=== PATIENT | male | born 1945 | race Caucasian/White ===

== ENCOUNTER → 2016-08-11 | Outpatient (CLI) | payer OTHER, MEDICARE ==
--- NOTE | 2016-08-11 16:55 | DX ---
Left foot 3 views Reason For Examination: Pain after dropping suitcase on left foot. Findings: The bones are intact. Joint spaces have normal thickness. No erosions and no periosteal rajan ction are found. No radiopaque foreign body. Mild bunion of first metatarsal head. Calcifications of small arteries of the foot raise a possibility of diabetes. Impression: No fracture. A Call Requested test result notification was sent via the [employer] service, 4:52:58 PM, 08/11/2016, Quin [email or web address] Message ID [id number].
== END ==
LOC: BMCIMAGING 16:33
PROVIDERS: ATTEND Internal Medicine
DX: M79.672 Pain in left foot (principal)

== ENCOUNTER 2016-10-16 17:55 | Inpatient (IN) | payer OTHER, MEDICARE ==
[2016-10-16] MEDS ORDERED: ONDANSETRON 4 MG/2 ML VIAL IVP ONE (18:23)
[2016-10-16] MEDS ORDERED: HYDROmorphONE/DILAUDID 1 MG/ML SYR IVP ONE (18:23)
[2016-10-16] MEDS ORDERED: NS 1,000 ML IV ONE (18:23)
--- NOTE | 2016-10-16 18:42 | EDPHY ---
H & P Stated Complaint: Sent by PCP. Blood in urine, severe cough, Right flank pain Time Seen by Provider: 10/16/16 18:29 HPI/ROS: CHIEF COMPLAINT: Flank pain HISTORY OF PRESENT ILLNESS: Patient is a 71-year-old man with a history of prostate cancer, bladder cancer with a neobladder by Dr. Chi and lymphoma who comes to the emergency department complaining of 10 days of flank pain, hematuria, chills and sweats. He presented to Dr. Kierra Butterfield this afternoon who referred him here. She is concerned about pyelonephritis. He does not have any history of kidney stones. He states that he had something similar happened 1 year ago on the left flank and received a colonoscopy, CT scan and MRI and ultimately no diagnosis was made but his symptoms resolved. He has not felt like eating today. He has not vomited but does feel slightly nauseous. No diarrhea. No abdominal pain. No testicular pain. He also takes Eliquis for history of atrial fibrillation. REVIEW OF SYSTEMS: Constitutional: denies: chills, fever, recent illness, recent injury EENTM: denies: blurred vision, double vision, nose congestion Respiratory: denies: cough, shortness of breath Cardiac: denies: chest pain, irregular heart rate, lightheadedness, palpitations Gastrointestinal/Abdominal: denies: abdominal pain, diarrhea, nausea, vomiting, blood streaked stools Genitourinary: See HPI Musculoskeletal: denies: joint pain, muscle pain Skin: denies: lesions, rash, jaundice, bruising Neurological: denies: headache, numbness, paresthesia, tingling, dizziness, weakness Hematologic/Lymphatic: denies: blood clots, easy bleeding, easy bruising Immunologic/allergic: denies: HIV/AIDS, transplant EXAM: GENERAL: Well-appearing, well-nourished and in no acute distress. HEAD: Atraumatic, normocephalic. EYES: Pupils equal round and reactive to light, extraocular movements intact, sclera anicteric, conjunctiva are normal. ENT: TMs normal, nares patent, oropharynx clear without exudates. Moist mucous membranes. NECK: Normal range of motion, supple without lymphadenopathy or JVD. LUNGS: Breath sounds clear to auscultation bilaterally and equal. No wheezes rales or rhonchi. HEART: Irregular rhythm without murmurs, rubs or gallops. ABDOMEN: Soft, nontender, normoactive bowel sounds. No guarding, no rebound. No masses appreciated. BACK: Right CVA tenderness, no swelling or rash, no spinal tenderness, step- offs or deformities EXTREMITIES: Normal range of motion, no pitting or edema. No clubbing or cyanosis. NEUROLOGICAL: Cranial nerves II through XII grossly intact. Normal speech, normal gait. 5/5 strength, normal movement in all extremities, normal sensation PSYCH: Normal mood, normal affect. SKIN: Warm, dry, normal turgor, no visible rashes or lesions. Source: Patient, RN/MD Exam Limitations: No limitations - Personal History Current Tetanus Diphtheria and Acellular Pertussis (TDAP): Yes Tetanus Vaccine Date: unsure - Medical/Surgical History Hx Asthma: No Hx Chronic Respiratory Disease: No Hx Diabetes: No Hx Cardiac Disease: Yes Hx Renal Disease: No Hx Cirrhosis: No Hx Alcoholism: No Hx HIV/AIDS: No Hx Splenectomy or Spleen Trauma: No Other PMH: Kidney pain to left 2016. Heart arrythmia. Prostate and bladder cancer. Lymphoma. sleep apnea. - Family History Significant Family History: No pertinent family hx - Social History Smoking Status: Never smoked Alcohol Use: Sober Drug Use: None Constitutional: Initial Vital Signs Temperature (C) 36.7 C 10/16/16 17:57 Heart Rate 93 10/16/16 17:57 Respiratory Rate 16 10/16/16 17:57 Blood Pressure 109/86 H 10/16/16 17:57 O2 Sat (%) 96 10/16/16 17:57 O2 Delivery Mode Room Air O2 (L/minute) 2 Allergies/Adverse Reactions: No Allergies [NKA] Allergy (Verified 05/16/11 17:47) Home Medications: Medication Instructions Recorded Apixaban [Eliquis] 5 mg PO BID 10/16/16 Metoprolol Tartrate [Lopressor 25 25 mg PO BID 10/16/16 mg (*)] Medical Decision Making - Diagnostics Imaging: X-ray: chest x-ray was obtained. I viewed the images myself on the PACS system. My interpretation of the images is: negative for acute disease . The radiologist interpretation is possible bronchitis. Results: CT scan of the abdomen was obtained. The results of the study are negative for pericolic fluid or stone. The study was read by Dr. Eduardo. I viewed the images myself on the PACS system. ED Course/Re-evaluation: 8:50 p.m. the patient still having pain particularly with coughing. He does have bronchitis on the x-ray. He still has kidney pain. Considering his neobladder and surgical history of will admit for antibiotics and pain control. Also we discussed Gay catheter. The patient would prefer to defer this at this time I discussed the case with Dr. Chyna Gilbert who will admit to the medical service. Differential Diagnosis: Partial list of the Differential diagnosis considered include but were not limited to; [] and although unlikely based on the history and physical exam, I also considered []. I discussed these differential diagnoses and the plan with the [patient] as well as the usual and expected course. The [patient understands] that the diagnosis is provisional and that in medicine we are not always correct and that further workup is often warranted. Usual and customary warnings were given. All of the [patient's] questions were answered. The [ patient was] instructed to return to the emergency department should the symptoms at all worsen or return, otherwise to followup with the physician as we discussed. - Data Points Laboratory Results: Laboratory Results 10/17/16 05:05 10/17/16 05:05 Microbiology Results: MICROBIOLOGY 10/16/16 19:41 Urine,Clean Catch Urine Culture - Final Three [place] Types Medications Given: Discontinued Medications Hydromorphone HCl (Dilaudid) 0.5 mg IVP EDNOW ONE Stop: 10/16/16 18:24 Last Admin: 10/16/16 18:40 Dose: 0.5 mg Sodium Chloride (Ns) 1,000 mls @ 0 mls/hr IV EDNOW ONE PRN Reason: Wide Open Stop: 10/16/16 18:24 Last Admin: 10/16/16 18:40 Dose: 1,000 mls Ceftriaxone Sodium/Dextrose (Rocephin 1 Gm (Premix)) 50 mls @ 100 mls/hr IV EDNOW ONE PRN Reason: Protocol Stop: 10/16/16 21:02 Last Admin: 10/16/16 21:27 Dose: 50 mls Ceftriaxone Sodium 1 gm/ (Dextrose) 50 mls @ 100 mls/hr IV [id number] SUSSY PRN Reason: Protocol Stop: 11/16/16 20:59 Last Admin: 10/17/16 19:51 Dose: 50 mls Sodium Chloride (Ns) 250 mls @ 250 mls/hr IV ONCE ONE Stop: 10/17/16 10:04 Last Admin: 10/17/16 10:06 Dose: 250 mls Ondansetron HCl (Zofran) 4 mg IVP EDNOW ONE Stop: 10/16/16 18:24 Last Admin: 10/16/16 18:40 Dose: 4 mg Departure - Departure Disposition: [facility] Acute Clinical Impression: Pyelonephritis Condition: Fair
[2016-10-16 18:58] LABS: % IMMATURE GRANULYOCYTES 0.4 % (0.0-1.1); ABSOLUTE IMMATURE GRANULOCYTES 0.02 10^3/uL (0.00-0.10); ADD DIFF? NO; ADD MORPH? NO; ADD SCAN? NO; ATYPICAL LYMPHOCYTE FLAG 10 (0-99); FRAGMENT RBC FLAG 0 (0-99); HEMATOCRIT 46.4 % (40.0-51.0); LEFT SHIFT FLG 0 (0-99); LIPEMIA HEMOLYSIS FLAG 90 (0-99); MEAN CELL HEMOGLOBIN 32.9 pg (27.9-34.1); MEAN CELL HEMOGLOBIN CONCENTR. 34.5 g/dL (32.4-36.7); MEAN CELL VOLUME 95.3 fL (81.5-99.8); MEAN PLATELET VOLUME 11.4 fL (8.7-11.7); PLATELET CLUMPS FLAG 0 (0-99); PLATELET COUNT 167 10^3/uL (150-400); RED BLOOD CELL COUNT 4.87 10^6/uL (4.40-6.38); RED CELL DISTRIBUTION WIDTH 13.4 % (11.5-15.2)
[2016-10-16 19:08] LABS: COLOR YELLOW; LEUKOCYTE ESTERASE,URINE NEGATIVE (NEGATIVE); NITRITE,URINE NEGATIVE (NEGATIVE)
[2016-10-16 19:17] LABS: ALANINE AMINOTRANSFERASE 46 IU/L (21-72); ALBUMIN 4.4 g/dL (3.5-5.0); ALKALINE PHOSPHATASE 91 IU/L (38-126); ANION GAP 14 mEq/L (8-16); ASPARTATE AMINOTRANSFERASE 42 IU/L (17-59); BILIRUBIN,TOTAL 1.7 mg/dL (0.1-1.4); BILIRUBIN-CONJUGATED 0.4 mg/dL (0.0-0.5); BILIRUBIN-UNCONJUGATED 1.3 mg/dL (0.0-1.1); CALCIUM 9.1 mg/dL (8.5-10.4); CARBON DIOXIDE 20 mEq/l (22-31); CHLORIDE 96 mEq/L (97-110); CREATININE 1.6 mg/dL (0.7-1.3); GLOMERULAR FILTRATION RATE 43; GLUCOSE 98 mg/dL (70-100); POTASSIUM 4.5 mEq/L (3.5-5.2); SODIUM 130 mEq/L (134-144)
[2016-10-16 19:36] LABS: INR 1.3 (0.83-1.16); PROTIME(PATIENT) 16.2 SEC (12.0-15.0)
[2016-10-16 19:37] LABS: APTT 31.9 SEC (23.0-38.0)
[2016-10-16 19:40] LABS: BACTERIA TRACE /hpf (NONE SEEN); MUCUS TRACE /lpf (NONE-1+); RBC,URINE 50-182 /hpf (0-3); WBC,URINE 50-182 /hpf (0-3)
[2016-10-16] MEDS ORDERED: ACETAMINOPHEN 325 MG TAB PO PRN (22:09)
[2016-10-16] MEDS ORDERED: ONDANSETRON 4 MG/2 ML VIAL IVP PRN (22:09)
[2016-10-16] MEDS: NS 1,000 ML IV SCH (22:29)
[2016-10-16] MEDS: HYDROmorphONE/DILAUDID 1 MG/ML SYR IVP PRN (22:30)
--- NOTE | 2016-10-16 22:46 | GHP ---
[f rep st] HISTORY AND PHYSICAL DATE OF ADMISSION: 10/16/2016 CHIEF COMPLAINT: Flank pain. HISTORY: The patient is a 71-year-old male with a history of prostate and bladder cancer for which he had a radical cystoprostatectomy with a neobladder by Dr. Chi. He has done well with that surg clarissa and normally does not have any urinary issues. He does not have an ostomy and everything is int ernal. He now presents to the hospital with severe flank pain for the last 10 days. It has been es calating. Today, it got so severe he could not even get off the couch. Four days ago he noticed he maturia. He has also had a severe cough. He has had night sweats and chills. He lives with his so n, who is at bedside. Son states the patient has been getting increasingly more confused. The arabella ent states he is confused because he has been in so much pain he has been unable to sleep for the 4 nights. PAST MEDICAL HISTORY: 1. Prostate and bladder cancer, status post radical cystoprostatectomy and neobladder. 2. Lymphoma. 3. Atrial fibrillation. 4. MRSA endocarditis in 2010. 5. Small bowel obstruction, status post lysis of adhesions. 6. Chronic kidney disease. Baseline creatinine 1.5. 7. Cholecystectomy. MEDICATIONS: Please see computer record for full detailed list. ALLERGIES: No known drug allergies. SOCIAL HISTORY: No smoking. Drinks wine daily. Lives with his son, who is an immigration attorney. REVIEW OF SYSTEMS: Complete review of systems obtained. Review of systems is negative regarding co nstitutional, HEENT, GI, pulmonary, cardiovascular, , hematology, skin, musculoskeletal, endocrine , and psychiatric except for positives and negatives as in HPI. FAMILY HISTORY: Reviewed and noncontributory to the presenting complaint. PHYSICAL EXAMINATION: GENERAL: Well-developed, well-nourished male, in no acute distress. VITAL S IGNS: Temperature is 36.7, pulse 91, blood pressure 102/78, sating 96% on room air. EYE: Normal c onjunctivae. Pupils are equal and react to light. ENT: Normal ears, nose. Hearing intact. Stephanie l lips and teeth. Oropharynx moist. NECK: Trachea midline. No thyromegaly. CHEST: Normal inspi ratory effort. LUNGS: Clear to auscultation bilaterally. CARDIOVASCULAR: Regular rate and rhythm . No murmur. No lower extremity edema. ABDOMEN: Soft, nontender. No hepatosplenomegaly. He arauz s have quite exquisite right costovertebral angle tenderness to palpation. SKIN: Warm, dry, and in tact without rash. MUSCULOSKELETAL: No cyanosis or clubbing. Strength 5/5 upper and lower extremi ties. NEUROLOGIC: Cranial nerves intact. Normal sensation light touch. PSYCH: Alert and oriente d x3. Normal affect. Normal judgment and insight. Normal memory. LABS: White count 5.08, hematocrit 46.4, platelets 167. Sodium 130, potassium 4.5, chloride 96, bi carb 20, BUN 30, creatinine 1.6, glucose 98, total bili 1.6. INR is 1.3. Lactate is 1.4. Chest x- ray is negative. Urinalysis shows 50-[address] scan of the abdomen and pelvis is n egative. This case was discussed with Dr. Youngblood. He believes this patient to have a pyelonephritis and was given a dose of IV ceftriaxone. ASSESSMENT/PLAN: 1. Pyelonephritis. Will continue IV ceftriaxone and await urine culture. 2. Prostate and bladder cancer, status post neobladder. He does not have an ostectomy so, therefor e, I would think our culture data would be more reliable. 3. Atrial fibrillation. Home meds still need to be reconciled. 4. Chronic kidney disease. He is near his baseline, but I suspect he is dehydrated. Will give IV fluid overnight and recheck. CODE STATUS: Full. ADMISSION STATUS: 1. Will admit to observation as he may improve rapidly depending on clinical course. 2. DVT prophylaxis. He is high risk. I will place him on subcu Lovenox. /[id number]/MODL
[2016-10-17] MEDS: oxyCODONE IR 5 MG TAB PO PRN ×2 (00:34→22:11)
[2016-10-17] MEDS: APIXABAN 5 MG TAB PO SCH ×3 (01:10→19:44)
[2016-10-17] MEDS: HYDROmorphONE/DILAUDID 1 MG/ML SYR IVP PRN ×2 (03:02→10:07)
[2016-10-17 05:47] LABS: % IMMATURE GRANULYOCYTES 0.4 % (0.0-1.1); ABSOLUTE IMMATURE GRANULOCYTES 0.02 10^3/uL (0.00-0.10); ADD DIFF? NO; ADD MORPH? NO; ADD SCAN? NO; ATYPICAL LYMPHOCYTE FLAG 40 (0-99); FRAGMENT RBC FLAG 0 (0-99); HEMATOCRIT 40.4 % (40.0-51.0); HEMOGLOBIN 13.8 g/dL (13.7-17.5); LEFT SHIFT FLG 0 (0-99); LIPEMIA HEMOLYSIS FLAG 90 (0-99); MEAN CELL HEMOGLOBIN 33.2 pg (27.9-34.1); MEAN CELL HEMOGLOBIN CONCENTR. 34.2 g/dL (32.4-36.7); MEAN CELL VOLUME 97.1 fL (81.5-99.8); MEAN PLATELET VOLUME 11.4 fL (8.7-11.7); PLATELET CLUMPS FLAG 0 (0-99); PLATELET COUNT 125 10^3/uL (150-400); RED BLOOD CELL COUNT 4.16 10^6/uL (4.40-6.38); RED CELL DISTRIBUTION WIDTH 13.5 % (11.5-15.2)
[2016-10-17 06:20] LABS: ANION GAP 8 mEq/L (8-16); CALCIUM 7.8 mg/dL (8.5-10.4); CARBON DIOXIDE 20 mEq/l (22-31); CHLORIDE 103 mEq/L (97-110); CREATININE 1.3 mg/dL (0.7-1.3); GLOMERULAR FILTRATION RATE 55; GLUCOSE 80 mg/dL (70-100); POTASSIUM 4.2 mEq/L (3.5-5.2); SODIUM 131 mEq/L (134-144)
[2016-10-17] MEDS: NS 1,000 ML IV SCH ×2 (07:36→16:22)
[2016-10-17] MEDS ORDERED: ENOXAPARIN 40 MG/0.4 ML SYR SC SCH (09:00)
--- NOTE | 2016-10-17 09:03 | HOSPPROG ---
Hospitalist Progress Note Assessment/Plan: Patient is a 71-year-old male with a history of prostate and bladder cancer for which he had a radical cystoprostatectomy with a neobladder by Dr. Chi. He presented to the emergency room with flank pain. 4 days ago he noticed he has some hematuria and cough. A CT scan of the abdomen and pelvis is negative. Today is my 1st encounter with the patient. Chart reviewed. * Acute pyelonephritis - awaiting urine culture - ceftriaxone 10/16 - has signicant flank pain on right side *right L3 and L4 transverse process fx/L4 compression fx - patient says this is old/ but ? if this may attributing to pain above * chronic kidney disease - improved with hydration * bronchitis/likely viral -has had multiple bouts of coughing * hyponatremia - better today * hypotension - will continue fluids - improved with bolus given * atrial fibrillation -on Eliquis * prostate and bladder cancer - followed by Dr. Chi * hx of lymphoma Plan: patient will require another midnight stay for treatment of low bp, pyelo / he will require IP status for further treatment Subjective: Jun said pain is severe on right flank area/ when he coughs the pain increases. Objective: Vital Signs Temp Pulse Resp BP Pulse Ox 37.1 C 88 18 85/58 L 95 10/17/16 08:00 10/17/16 08:00 10/17/16 08:00 10/17/16 08:00 10/17/16 08:00 Laboratory Results 10/17/16 05:05 10/17/16 05:05 10/16/16 10/17/16 10/18/16 05:59 05:59 05:59 Intake Total 1700 Output Total 250 150 Balance 1450 -150 PT 16.2 SEC (12.0-15.0) H 10/16/16 18:40 INR 1.30 (0.83-1.16) H 10/16/16 18:40 - Physical Exam Constitutional: uncomfortable Eyes: PERRL Ears, Nose, Mouth, Throat: hearing normal Cardiovascular: regular rate and rhythym, no murmur, rub, or gallop Respiratory: no respiratory distress, rhonchi (few loose rhonchii at right base) Gastrointestinal: normoactive bowel sounds Skin: warm, normal color Musculoskeletal: muscular tenderness (right back area) Neurologic: AAOx3 Psychiatric: interacting appropriately ICD10 Worksheet Patient Problems: Problems Problem Status Onset Pyelonephritis Acute Afib - Atrial fibrillation Active MRSA - Methicillin resistant Staphylococcus aureus infection Active Small bowel obstruction Active bladder carcinoma Active prostate cancer Active
[2016-10-17] MEDS ORDERED: NS 250 ML IV ONE (09:05)
[2016-10-17] MEDS: METOPROLOL TARTRATE 25 MG TAB PO SCH ×2 (09:19→19:43)
[2016-10-17] MEDS: CEPACOL LOZENGE PO PRN ×3 (14:09→19:22)
[2016-10-17] MEDS: LIDOCAINE 5% 1 EA PATCH TD SCH ×2 (14:09→14:17)
[2016-10-17] MEDS: guaiFENesin/CODEINE PHOS 10 ML UDCUP PO PRN ×2 (14:09→19:44)
[2016-10-17] MEDS ORDERED: cefTRIAXone 1 GM in D5W 50 ML IV SCH (21:00)
[2016-10-17] MEDS: PATCH REMOVAL 1 EA PATCH TD SCH (22:00)
[2016-10-18] MEDS: NS 1,000 ML IV SCH ×2 (03:08→13:44)
[2016-10-18 06:15] LABS: ANION GAP 9 mEq/L (8-16); CALCIUM 7.6 mg/dL (8.5-10.4); CARBON DIOXIDE 21 mEq/l (22-31); CHLORIDE 104 mEq/L (97-110); CREATININE 1.2 mg/dL (0.7-1.3); GLOMERULAR FILTRATION RATE 60; GLUCOSE 85 mg/dL (70-100); POTASSIUM 4.1 mEq/L (3.5-5.2); SODIUM 134 mEq/L (134-144)
[2016-10-18] MEDS: guaiFENesin/CODEINE PHOS 10 ML UDCUP PO PRN ×2 (07:02→21:03)
[2016-10-18] MEDS: CEPACOL LOZENGE PO PRN ×2 (07:02→16:31)
[2016-10-18] MEDS: APIXABAN 5 MG TAB PO SCH ×2 (08:17→20:58)
[2016-10-18] MEDS: LIDOCAINE 5% 1 EA PATCH TD SCH (08:17)
--- NOTE | 2016-10-18 09:47 | HOSPPROG ---
Hospitalist Progress Note Assessment/Plan: Patient is a 71-year-old male with a history of prostate and bladder cancer for which he had a radical cystoprostatectomy with a neobladder by Dr. Chi. He presented to the emergency room with flank pain. 4 days ago he noticed he has some hematuria and cough. A CT scan of the abdomen and pelvis is negative. * Acute pyelonephritis - urine culture shows two colony counts - ceftriaxone 10/16 - flank pain on right side has improved with the use of abx *right L3 and L4 transverse process fx/ oldL4 compression fx - ? if this is attributing to his pain - have asked neurosurgery to see/ asked them to see patient prior to ordering any test * chronic kidney disease - improved with hydration * bronchitis/likely viral -has had multiple bouts of coughing -Robitussin w codeine has been ordered, Cepacol, will add Tessalon perls * hyponatremia due to hypovolemia - resolved * hypotension - will continue fluids -improved with bolus given -parameters placed on as to when to hold beta yesi * atrial fibrillation -on Eliquis * prostate and bladder cancer - followed by Dr. Chi/ spoke with BRODY Ontiveros with Dr Chi/ he is in [place] today, but back in office tomorrow - will ask and see if he can see the patient on / left * hx of lymphoma Plan: call into urology, neurosurgery to see later, asked the patient training representative to see the patient / he has multiple concerns. >30 minutes seeing patient and organizing plan of care with neurosurgery and urology. Subjective: Jun says his right sided flank pain is better. Wants to be assured he won't get another urinary tract infection/had one last year approximately at the same time. Objective: Vital Signs Temp Pulse Resp BP Pulse Ox 37.1 C 97 18 107/68 93 10/18/16 08:00 10/18/16 08:00 10/18/16 08:00 10/18/16 08:00 10/18/16 08:00 Laboratory Results 10/18/16 05:25 10/17/16 10/18/16 10/19/16 05:59 05:59 05:59 Intake Total 3323 Output Total 475 Balance 2848 PT 16.2 SEC (12.0-15.0) H 10/16/16 18:40 INR 1.30 (0.83-1.16) H 10/16/16 18:40 - Physical Exam Constitutional: uncomfortable Eyes: PERRL Ears, Nose, Mouth, Throat: hearing normal Cardiovascular: regular rate and rhythym Respiratory: no respiratory distress Gastrointestinal: soft, non-tender abdomen Skin: warm, normal color Musculoskeletal: muscular tenderness (right back area) Neurologic: AAOx3 Psychiatric: not encephalopathic, thought process linear ICD10 Worksheet Patient Problems: Problems Problem Status Onset Pyelonephritis Acute Afib - Atrial fibrillation Active MRSA - Methicillin resistant Staphylococcus aureus infection Active Small bowel obstruction Active bladder carcinoma Active prostate cancer Active
[2016-10-18] MEDS: METOPROLOL TARTRATE 25 MG TAB PO SCH (10:24)
[2016-10-18] MEDS: BENZONATATE 100 MG CAP PO PRN ×2 (10:27→21:03)
--- NOTE | 2016-10-18 12:01 | GCON ---
[f rep st] CONSULTATION CONSULTATION/HISTORY AND PHYSICAL CHIEF COMPLAINT: Low back pain, right-sided flank pain with recent fall. HISTORY OF PRESENT ILLNESS: The patient is a 71-year-old male who has a history of prostate and bladder cancer for which he had radical cystoprostatectomy and a neobladder implant by Dr. Chi. He had done well with the surgery and normally does not have any urinary issues. He does have an ostomy and everything is internal. He presented to the hospital on 2016 with severe right-sided flank pain for the past 10 days. He states it has been escalating. On the day of admission, he stated per the admitting physician 's note, that it got so severe he could not get off the couch. Four days ago he noted some hematuria. He also complained of a severe cough on admission. He states mainly pain in the right side and his flank area. No pain in his buttocks bilaterally. No pain in his legs. He has no numbness. No tingling. No weakness in his legs. He is ambulating well. No change in bowel or bladder habits. No numbness in the groin. PAST MEDICAL HISTORY: Significant for the followin. Prostate cancer. 2. Bladder cancer. 3. Lymphoma. 4. Atrial fibrillation. 5. MRSA endocarditis in 2010. 6. Small-bowel obstruction. 7. Chronic kidney disease. 8. Cholecystectomy history. PAST SURGICAL HISTORY: 1. Prostate surgery with a radical cystoprostatectomy. 2. Implantation of neobladder. 3. Cholecystectomy. 4. Abdominal surgery for lysis of adhesions. MEDICATIONS: Please see computer record for full detailed list. ALLERGIES: No known drug allergies. SOCIAL HISTORY: Patient is not . He has 3 children. He does not smoke. He drinks about 3 alcoholic beverages per week. He does not use any illicit drugs. He lives with his son who is an deputy prosecuting attorney. FAMILY HISTORY: Significant for a brother with hypertension and obesity of father who from lymphoma at age 83. IMMUNIZATIONS: Reported up to date. TRAVEL: No recent travel. REVIEW OF SYSTEMS: Complete review of systems noted in conjunction with above. Noted the following: No headache. No diplopia. No blurred vision. No loss of visual field. No hearing loss, tinnitus or vertigo. PULMONARY: No cough, sputum production, hemoptysis, dyspnea or pleuritic chest pain. CARDIAC: No chest pain or pressure. No palpitations. GI: No weight loss or gain. No nausea, vomiting, or diarrhea. : Noticed some dysuria and some hematuria. No urgency or frequency. No incontinence. PSYCHIATRIC: No suicidality or homicidality. PHYSICAL EXAMINATION: VITAL SIGNS: Most recent blood pressure 107/68 with a MAP of 81, 97 heart rate, 18 respirations, 93% on room air, temperature 37.1. HEENT: Normocephalic, atraumatic. Pupils are equal, round, and reactive to light. EOMIs intact. Full visual jacobson by confrontation. Ears are patent. Nose is patent. NECK: Soft, supple. No midline tenderness. Full range of motion in flexion, extension, lateral bending, and rotation. RESPIRATORY/ CARDIAC: Deferred. ABDOMEN: Soft, nontender. No peritoneal signs. /RECTAL : Deferred. NEURO: Patient is awake, alert, and oriented to name, place, location, date, time, and situation. Memory is intact to immediate, past, and current events. Speech: No aphasia, dysarthria, dysphonia. Cranial nerves 2- 12 are grossly intact. Motor: Patient has 5/5 strength in all muscle groups of bilateral upper and lower extremities. Sensation is grossly intact to light touch throughout all dermatome distributions. Negative straight leg raise. Negative KIMBERLY test. Reflexes of biceps, triceps, brachioradialis, knee jerk, and ankle jerk are 2+ out of 4. Toes are downgoing bilaterally. MEDICAL DECISION MAKING/DIAGNOSTIC STUDIES: Laboratory tests obtained on 2016: White count 4.67, H and H of 13.8 and 40.4, with a platelet count of 125. Coags on 10/16/2016: A PT of 16.2, and INR of 1.30, and a PTT of 31.9. Chemistry on 10/18/2016: Sodium 134, potassium 4.1, chloride 104, CO2 21, BUN 18, creatinine 1.2 and a glucose of 85. Imaging: CT scan of the abdomen and pelvis obtained on 10/16/2016 shows a nondisplaced right L3 and L4 transverse process fractures. Some baseline degenerative changes. Pending MRI of the lumbar spine with and without contrast. IMPRESSION: 1. Recent fall. 2. History of bladder and prostate cancer in remission. Patient's oncologist, Dr. Bartholomew. 3. Right L3 and L4 transverse process fracture. PLAN/DISCUSSION: The patient is a 71-year-old male who is in remission under the care of Dr. Bartholomew for his bladder and prostate cancer history. He has had approximately 10 days of some hematuria per his account as well as some right- sided flank pain. A CT scan shows right-sided L3 and L4 transverse process fractures which do not require any surgical intervention or bracing from our standpoint. Due to his continued back pain. We will get an MRI of his lumbar spine with without contrast. We will follow up with this hopefully later today once this is completed. Patient is agreeing with this plan. All questions and concerns were answered. He understands and agrees and will follow up with him once the imaging tests were obtained. /[id number]/MODL MTDD
[2016-10-18] MEDS ORDERED: GADOBUTROL 10 ML VIAL IVP ONE (15:13)
[2016-10-18] MEDS: PATCH REMOVAL 1 EA PATCH TD SCH (21:30)
[2016-10-19] MEDS: guaiFENesin/CODEINE PHOS 10 ML UDCUP PO PRN (03:15)
[2016-10-19 05:18] VITALS: BP 96/64
[2016-10-19 05:47] LABS: % IMMATURE GRANULYOCYTES 0.4 % (0.0-1.1); ABSOLUTE IMMATURE GRANULOCYTES 0.01 10^3/uL (0.00-0.10); ADD DIFF? NO; ADD MORPH? NO; ADD SCAN? NO; ATYPICAL LYMPHOCYTE FLAG 90 (0-99); FRAGMENT RBC FLAG 0 (0-99); HEMATOCRIT 39.3 % (40.0-51.0); HEMOGLOBIN 13.7 g/dL (13.7-17.5); LEFT SHIFT FLG 0 (0-99); LIPEMIA HEMOLYSIS FLAG 90 (0-99); MEAN CELL HEMOGLOBIN 33.4 pg (27.9-34.1); MEAN CELL HEMOGLOBIN CONCENTR. 34.9 g/dL (32.4-36.7); MEAN CELL VOLUME 95.9 fL (81.5-99.8); MEAN PLATELET VOLUME 11.2 fL (8.7-11.7); PLATELET CLUMPS FLAG 0 (0-99); PLATELET COUNT 138 10^3/uL (150-400); RED CELL DISTRIBUTION WIDTH 13.2 % (11.5-15.2)
[2016-10-19 05:50] LABS: ALANINE AMINOTRANSFERASE 38 IU/L (21-72); ALBUMIN 2.9 g/dL (3.5-5.0); ALKALINE PHOSPHATASE 62 IU/L (38-126); ANION GAP 7 mEq/L (8-16); ASPARTATE AMINOTRANSFERASE 38 IU/L (17-59); BILIRUBIN,TOTAL 0.8 mg/dL (0.1-1.4); CALCIUM 8.1 mg/dL (8.5-10.4); CARBON DIOXIDE 23 mEq/l (22-31); CHLORIDE 104 mEq/L (97-110); CREATININE 1.1 mg/dL (0.7-1.3); GLOMERULAR FILTRATION RATE > 60; GLUCOSE 85 mg/dL (70-100); POTASSIUM 4.2 mEq/L (3.5-5.2); SODIUM 134 mEq/L (134-144); TOTAL PROTEIN 5.3 g/dL (6.3-8.2)
[2016-10-19 07:59] VITALS: PULSE 95; RESP 18; TEMP 98; O2SAT 90
--- NOTE | 2016-10-19 09:06 | NEUSURGPN ---
Assessment/Plan: Assessment: 71 yo male that was admitted to with right sided pain, we were consulted for right L3 and right L4 TP fractures Plan: -TP fx on right at L3 and L4: MRI done to confirm the diagnosis-no severe stenosis -no surgery recommended -treat with pain medications and muscle relaxants prn -PT/OT -Pt see by Dr Miranda -warning signs given -call with any questions or concerns -NS to sign off and pt can see his PCP prn for his back Subjective: Awake and alert. NAD. Eating/drinking and voiding. No f/c/n/v/d. No caraballo/neck/ chest/abd or gu complaints. Objective: AAO x 3, PERRLA/EOMI no droop CN 2-12 grossly intact +lt touch 5/5 BUE/BLE = Neuro Check Frequency: per routine Urinary Catheter in Place: No - Physician Discussed Patient with : Ruben Patient Seen by : Ruben Neurosurgery Physical Exam - Vitals, I&O, Labs I and O 10/18/16 10/19/16 10/20/16 05:59 05:59 05:59 Intake Total 3323 1018 Output Total 475 150 Balance 2848 868 Intake: Oral (ml) 200 IV Infused (ml) 3123 1018 Ns 1,000 ml @ 100 mls/hr 3123 1018 IV CONT SUSSY Rx#: [id number] Output: Urine (ml) 475 150 Urinal 475 150 Other: Intake Quantity Yes Yes Sufficient Output Comment Urinal on past two voids, at end of urination, small amount of blood has passed. Number of Voids Urinal 2 Vital Signs Temp Pulse Resp BP Pulse Ox 36.6 C 95 18 96/64 L 90 L 10/19/16 07:58 10/19/16 07:58 10/19/16 07:58 10/19/16 07:58 10/19/16 07:58 Laboratory Results 10/19/16 04:54 10/19/16 04:54 ICD10 Worksheet Patient Problems: Problems Problem Status Onset Pyelonephritis Acute Afib - Atrial fibrillation Active MRSA - Methicillin resistant Staphylococcus aureus infection Active Small bowel obstruction Active bladder carcinoma Active prostate cancer Active
[2016-10-19] MEDS: APIXABAN 5 MG TAB PO SCH (09:14)
[2016-10-19] MEDS: LIDOCAINE 5% 1 EA PATCH TD SCH (09:20)
[2016-10-19] MEDS: METOPROLOL TARTRATE 25 MG TAB PO SCH (11:02)
--- NOTE | 2016-10-19 17:29 | GDS ---
[f rep st] DISCHARGE SUMMARY DISCHARGE DIAGNOSES: Include: 1. Acute urinary tract infection/pyelonephritis. 2. L3-L4 nondisplaced compression fracture. 3. Chronic kidney disease. 4. Chronic cough secondary to suspected viral bronchitis. 5. Hyponatremia secondary to hypovolemia, resolved. 6. Atrial fibrillation. 7. Prostate cancer, status post surgical treatment. HISTORY OF PRESENT ILLNESS: This is a 71-year-old male who presented on 10/16/2016 with complaints of flank pain and hematuria. For details of the patient's initial presentation, please see the hist ory and physical dated 10/16/2016. HOSPITAL COURSE: 1. Acute pyelonephritis. Patient presented with flank pain, hematuria, had abnormal urinalysis and was initiated on empiric antibiotics. He had resolution of his flank pain after 72 hours of antibi otic treatment. Cultures did not grow a specific pathogen. We will, however, complete a 7-day cour se. It is recommended the patient follow with his urologist in the outpatient setting, Dr. Chi, a fter completion of his antibiotic therapy for re-analysis of his urine and followup of his post disp osition course. 2. Cough. This was one of the patient's presenting complaints. Chest x-ray obtained on 10/16 show ed findings consistent with only bronchitis. He has had symptoms for quite a long time, highly susp icious for an initial viral upper respiratory infection with now chronic cough. I am hesitant to in itiate prednisone therapy at this time as the patient is being actively treated for pyelonephritis. We have initiated guaifenesin with codeine for sleep as well as a trial of albuterol. We have inst ructed him to follow with Dr. Kierra Butterfield in the next week to evaluate his response to albuterol. Of note, the patient has been receiving antibiotics appropriately for bacterial pathogens of pneumonia as well. He shall finish the course by the time he is seen by Dr. Butterfield. 3. Atrial fibrillation. Patient did have low blood pressures but good heart rate control on his ho me dosing metoprolol. We have recommended that he decrease his dose by half and be evaluated again by either his outpatient naval designer or Dr. Butterfield. It would be my goal to have systolic blood pres sures above 100 systolic on treatment. 4. L3-L4 nondisplaced fracture. The patient was seen by Neurosurgery, MRI imaging obtained. It wa s not felt patient requires surgical intervention at this time. We discussed the use of either pain medications or muscle relaxants. The patient is not interested in using either of these at disposi tion. Again, he will follow in the outpatient setting with Dr. Butterfield and/or Dr. Miranda if his sympt oms progress. DISCHARGE MEDICATIONS: Please reference medication reconciliation printed on 10/19/2016. FOLLOWUP APPOINTMENTS: Include with Dr. Butterfield as well as Dr. Chi in the next 7-10 days. PENDING STUDIES: At the time of this dictation are none. I spent greater than 30 minutes in the planning and coordination of this discharge. /[id number]/MODL
== END 2016-10-19 11:40 | disposition home or self-care (01) | DRG 690 ==
LOC: F3E 22:14 → OBSVTOIN 10-17 12:45
PROVIDERS: ADMIT Internal Medicine; ATTEND Hospitalist
DX: N10 Acute pyelonephritis (principal); S32.039A Unspecified fracture of third lumbar vertebra, initial encounter for closed fracture; S32.049A Unspecified fracture of fourth lumbar vertebra, initial encounter for closed fracture; J40 Bronchitis, not specified as acute or chronic; E87.1 Hypo-osmolality and hyponatremia; E86.1 Hypovolemia; I48.91 Unspecified atrial fibrillation; Z85.46 Personal history of malignant neoplasm of prostate; N18.9 Chronic kidney disease, unspecified; Z96.0 Presence of urogenital implants; Z85.72 Personal history of non-Hodgkin lymphomas; W19.XXXA Unspecified fall, initial encounter; Y92.9 Unspecified place or not applicable
CPT/HCPCS: 96365; 97161-GP; 97165-GO; 97530-GP; A9585; G0378; G8978-GP-CI; G8979-GP-CI; G8980-GP-CI; G8987-GO-CI; G8988-GO-CH; G8989-GO-CH; J0696; J1170; J2405

== ENCOUNTER 2016-10-21 20:45 | Observation (INO) | payer OTHER, MEDICARE ==
--- NOTE | 2016-10-21 22:08 | CPEKG ---
Heart Rate: 87 RR Interval: 690 QRSD Interval: 82 QT Interval: 392 QTC Interval: 472 QRS [place]: 70 T Wave [place]: 45 EKG Severity - ABNORMAL ECG - EKG Impression: ATRIAL FIBRILLATION, V-RATE 61-115 Electronically Signed By: Liza Wilder 21-Oct-2016 23:10:09
--- NOTE | 2016-10-21 22:25 | EDPHY ---
H & P Stated Complaint: Not sleeping since released from Hosp , anxiety, Time Seen by Provider: 10/21/16 22:04 HPI/ROS: HPI The patient presents with insomnia which has been present for the last 3 days after he was discharged from the hospital on October 19 after a 3 day admission for pyelonephritis with hematuria and bronchitis. He says his 1st night home he slept 4 hours, then 1 hour 2 nights ago, then last night he did not sleep at all. He has not been sleeping during the day either. He says when he goes to lay down he is able to sleep for minutes, however then a wakes gasping for air. He feels somewhat congested, though denies any cough. This shortness of breath last for minutes, then resolves on its own. He has tried changes in position without any improvement in symptoms. He does not have any lower extremity edema, he is able to lie flat, he does not have any chest pain. Today he went for 1 mi walk without any dyspnea on exertion. He has not had any fever. He was discharged from the hospital on albuterol, guaifenesin, levofloxacin. He does have a diagnosis of obstructive sleep apnea, last sleep study was in July of 2016, he is not using CPAP currently.. REVIEW OF SYSTEMS Constitutional: No fever, no chills. Eyes: No discharge. ENT: No sore throat. Cardiovascular: No chest pain, no palpitations. Respiratory: No cough, no shortness of breath. Gastrointestinal: No abdominal pain, no vomiting. Genitourinary: No hematuria. Musculoskeletal: No back pain. Skin: No rashes. Neurological: No headache. PMHx: Atrial fibrillation on Eliquis, recent diagnosis of bronchitis and pyelonephritis with hospital admission, history of obstructive sleep apnea Soc Hx: Housed PHYSICAL General Appearance: Alert, no distress Eyes: Pupils equal and round no pallor or injection ENT, Mouth: Mucous membranes moist Respiratory: There are no retractions, lungs are clear to auscultation Cardiovascular: Regular rate and rhythm Gastrointestinal: Abdomen is soft and non-tender, no masses, bowel sounds normal Neurological: A&O, moves all extremities Skin: Warm and dry, no rashes Musculoskeletal: Neck is supple non tender Extremities: symmetrical, full range of motion Psychiatric: Patient is oriented X 3, there is no agitation Source: Patient Exam Limitations: No limitations - Personal History Current Tetanus/Diphtheria Vaccine: Unsure Current Tetanus Diphtheria and Acellular Pertussis (TDAP): Unsure Tetanus Vaccine Date: unsure - Medical/Surgical History Hx Asthma: No Hx Chronic Respiratory Disease: No Hx Diabetes: No Hx Cardiac Disease: Yes Hx Renal Disease: Yes Hx Cirrhosis: No Hx Alcoholism: No Hx HIV/AIDS: No Hx Splenectomy or Spleen Trauma: No Other PMH: Kidney infections. Afib. Prostate and bladder cancer. Lymphoma. sleep apnea, anxiety. - Social History Smoking Status: Never smoked Constitutional: Initial Vital Signs Temperature (C) 36.7 C 10/21/16 21:02 Heart Rate 96 10/21/16 21:02 Respiratory Rate 18 10/21/16 21:02 Blood Pressure 133/90 H 10/21/16 21:02 O2 Sat (%) 95 10/21/16 21:02 O2 Delivery Mode Room Air Allergies/Adverse Reactions: No Allergies [NKA] Allergy (Verified 05/16/11 17:47) Home Medications: Medication Instructions Recorded Apixaban [Eliquis] 5 mg PO BID 10/16/16 Albuterol [Proventil] 2 puffs IH BID #0 aerosol 10/19/16 Guaifenesin/Codeine Phosphate 5 ml PO HS #1 btl 10/19/16 [Codeine-Guaifen 10-100 mg/5 ml] Metoprolol Tartrate [Lopressor 25 12.5 mg PO BID #0 tab 10/19/16 mg (*)] levOFLOXACIN [Levofloxacin] 750 mg PO DAILY #5 tablet 10/19/16 Medical Decision Making - Diagnostics EKG Interpretation: EKG: Complete interpretation has been separately recorded in the [facility] archive. Summary impression: Atrial fibrillation with rate of 60-90 Imaging: Chest x-ray two views shows bronchitis, similar to prior chest x-ray, interpreted by Radiology, I have reviewed the images independently. ED Course/Re-evaluation: The patient was monitored in the emergency room. He did not have any episodes of shortness of breath. Labs returned and showed that he had an elevated BNP. 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 I am concerned he may have new onset heart failure related to his atrial fibrillation. He was given a dose of Lasix. The case was discussed with Dr. Sanchez of Internal Medicine. We plan to admit the patient for observation. Differential Diagnosis: This is a 71-year-old male with history of atrial fibrillation, obstructive sleep apnea, recent admission for pyelonephritis and bronchitis who presents with insomnia which she believes is caused by shortness of breath which is awaking him from sleep frequently. This insomnia is getting progressively worse. It was not present prior to his admission to the hospital. Differential diagnosis includes obstructive sleep apnea which is progressive, new onset CHF given his underlying atrial fibrillation, anxiety since his discharge, medication side effect. - Data Points Laboratory Results: Laboratory Results 10/21/16 20:32 10/21/16 20:32 10/22/16 10/21/16 10/21/16 00:00 20:32 20:32 WBC 5.82 10^3/uL 10^3/uL (3.80-9.50) RBC 4.54 10^6/uL 10^6/uL (4.40-6.38) Hgb 14.9 g/dL g/dL (13.7-17.5) Hct 43.3 % % (40.0-51.0) MCV 95.4 fL fL (81.5-99.8) MCH 32.8 pg pg (27.9-34.1) MCHC 34.4 g/dL g/dL (32.4-36.7) RDW 13.2 % % (11.5-15.2) Plt Count 228 10^3/uL D 10^3/uL (150-400) MPV 10.5 fL fL (8.7-11.7) Neut % (Auto) 69.8 % % (39.3-74.2) Lymph % (Auto) 18.2 % % (15.0-45.0) Bibb % (Auto) 10.5 % % (4.5-13.0) Eos % (Auto) 0.9 % % (0.6-7.6) Baso % (Auto) 0.3 % % (0.3-1.7) Nucleat RBC Rel Count 0.0 % % (0.0-0.2) Absolute Neuts (auto) 4.06 10^3/uL 10^3/uL (1.70-6.50) Absolute Lymphs (auto) 1.06 10^3/uL 10^3/uL (1.00-3.00) Absolute Monos (auto) 0.61 10^3/uL 10^3/uL (0.30-0.80) Absolute Eos (auto) 0.05 10^3/uL 10^3/uL (0.03-0.40) Absolute Basos (auto) 0.02 10^3/uL 10^3/uL (0.02-0.10) Absolute Nucleated RBC 0.00 10^3/uL 10^3/uL (0-0.01) Immature Gran % 0.3 % % (0.0-1.1) Immature Gran # 0.02 10^3/uL 10^3/uL (0.00-0.10) Sodium 140 mEq/L mEq/L (134-144) Potassium 4.3 mEq/L mEq/L (3.5-5.2) Chloride 108 mEq/L mEq/L (97-110) Carbon Dioxide 19 mEq/l L mEq/l (22-31) Anion Gap 13 mEq/L mEq/L (8-16) BUN 36 mg/dL H mg/dL (7-23) Creatinine 1.4 mg/dL H mg/dL (0.7-1.3) Estimated GFR 50 Glucose 97 mg/dL mg/dL (70-100) Calcium 9.1 mg/dL mg/dL (8.5-10.4) Total Bilirubin 1.8 mg/dL H D mg/dL (0.1-1.4) AST 56 IU/L IU/L (17-59) ALT 47 IU/L IU/L (21-72) Alkaline Phosphatase 76 IU/L IU/L (38-126) Troponin I NT-Pro-B Natriuret Pep 2750 pg/mL H pg/mL (0-125) Total Protein 6.6 g/dL D g/dL (6.3-8.2) Albumin 3.9 g/dL g/dL (3.5-5.0) TSH 3.360 uIU/mL uIU/mL (0.465-4.680) 10/21/16 20:30 WBC RBC Hgb Hct MCV MCH MCHC RDW Plt Count MPV Neut % (Auto) Lymph % (Auto) Bibb % (Auto) Eos % (Auto) Baso % (Auto) Nucleat RBC Rel Count Absolute Neuts (auto) Absolute Lymphs (auto) Absolute Monos (auto) Absolute Eos (auto) Absolute Basos (auto) Absolute Nucleated RBC Immature Gran % Immature Gran # Sodium Potassium Chloride Carbon Dioxide Anion Gap BUN Creatinine Estimated GFR Glucose Calcium Total Bilirubin AST ALT Alkaline Phosphatase Troponin I < 0.012 ng/mL ng/mL (0-0.034) NT-Pro-B Natriuret Pep Total Protein Albumin TSH Medications Given: Discontinued Medications Furosemide (Lasix Injection) 20 mg IVP EDNOW ONE Stop: 10/21/16 23:47 Last Admin: 10/22/16 00:10 Dose: 20 mg Departure - Departure Disposition: [facility] Inpatient Acute Clinical Impression: Afib - Atrial fibrillation, Paroxysmal nocturnal dyspnea Condition: Fair
[2016-10-21 22:47] LABS: % IMMATURE GRANULYOCYTES 0.3 % (0.0-1.1); ABSOLUTE IMMATURE GRANULOCYTES 0.02 10^3/uL (0.00-0.10); ADD DIFF? NO; ADD MORPH? NO; ADD SCAN? NO; ATYPICAL LYMPHOCYTE FLAG 40 (0-99); FRAGMENT RBC FLAG 0 (0-99); HEMATOCRIT 43.3 % (40.0-51.0); HEMOGLOBIN 14.9 g/dL (13.7-17.5); LEFT SHIFT FLG 0 (0-99); LIPEMIA HEMOLYSIS FLAG 90 (0-99); MEAN CELL HEMOGLOBIN 32.8 pg (27.9-34.1); MEAN CELL HEMOGLOBIN CONCENTR. 34.4 g/dL (32.4-36.7); MEAN CELL VOLUME 95.4 fL (81.5-99.8); MEAN PLATELET VOLUME 10.5 fL (8.7-11.7); PLATELET CLUMPS FLAG 0 (0-99); PLATELET COUNT 228 10^3/uL (150-400); RED BLOOD CELL COUNT 4.54 10^6/uL (4.40-6.38); RED CELL DISTRIBUTION WIDTH 13.2 % (11.5-15.2)
[2016-10-21 22:55] LABS: ALANINE AMINOTRANSFERASE 47 IU/L (21-72); ALBUMIN 3.9 g/dL (3.5-5.0); ALKALINE PHOSPHATASE 76 IU/L (38-126); ANION GAP 13 mEq/L (8-16); ASPARTATE AMINOTRANSFERASE 56 IU/L (17-59); BILIRUBIN,TOTAL 1.8 mg/dL (0.1-1.4); CALCIUM 9.1 mg/dL (8.5-10.4); CARBON DIOXIDE 19 mEq/l (22-31); CHLORIDE 108 mEq/L (97-110); CREATININE 1.4 mg/dL (0.7-1.3); GLOMERULAR FILTRATION RATE 50; GLUCOSE 97 mg/dL (70-100); POTASSIUM 4.3 mEq/L (3.5-5.2); SODIUM 140 mEq/L (134-144); TOTAL PROTEIN 6.6 g/dL (6.3-8.2)
[2016-10-21] MEDS ORDERED: FUROSEMIDE 20 MG/2 ML VIAL IVP ONE (23:46)
[2016-10-22] MEDS ORDERED: SODIUM CL NASAL 45 ML BTL EACHNARE PRN (01:23)
[2016-10-22] MEDS: ZOLPIDEM TARTRATE 5 MG TAB PO PRN ×2 (02:03→02:18)
--- NOTE | 2016-10-22 02:16 | GHP ---
[f rep st] HISTORY AND PHYSICAL DATE OF ADMISSION: 10/21/2016 CHIEF COMPLAINT: "Can't sleep" and shortness of breath. HISTORY OF PRESENT ILLNESS: This is a 71-year-old male discharged from [facility] on 10/19/2016 after being treated for pyelonephritis, who presents to the emergency department this yariel lilia stating that he has been unable to sleep for the past three nights. Whenever he lies down, he becomes short of breath and begins gasping for air. He denies any chest pain. He denies any dyspnea on exertion or lower extremity swelling. He does h ave a history of chronic atrial fibrillation, but denies any palpitations or tachyarrhythmias. The patient has had increased amount of phlegm which he thinks may be contributing to his breathing problems. His shortness of breath does not improve with sitting up. PAST MEDICAL HISTORY: 1. Recent hospitalization for pyelonephritis, see HPI. 2. Nondisplaced L3-L4 compression fracture found during this last hospital stay that was deemed non operative. 3. Chronic kidney disease. 4. Chronic atrial fibrillation. 5. Obstructive sleep apnea. 6. Prostate cancer, status post surgical treatment. 7. Lymphoma. 8. MRSA endocarditis. 9. Small-bowel obstruction, status post lysis of adhesions. 10. Cholecystectomy. MEDICATIONS: From home were reviewed, refer to [place] for details. ALLERGIES: No known drug allergies. SOCIAL HISTORY: The patient denies any tobacco use. He drinks wine daily. He denies any illicit d rug use. FAMILY HISTORY: Reviewed and noncontributory. REVIEW OF SYSTEMS: Comprehensive 10-point review of systems was done and is negative, except for as mentioned in the HPI and below. ENT: Reports dry mouth which is also contributing to his inabilit y to sleep. CONSTITUTIONAL: Denies any fevers. : Denies any pain with urination, but he is hav ing some hematuria. PHYSICAL EXAMINATION: VITAL SIGNS: Blood pressure 111/89, pulse of 100, respiratory rate 16, O2 sa turation 97% on room air, temperature afebrile. GENERAL: No acute distress. HEENT: Head normocep halic, atraumatic. Eyes are PERRLA. Sclerae anicteric. Mouth is dry oral mucosa. NECK: Supple. No lymphadenopathy. CARDIOVASCULAR: Irregularly irregular, S1 and S2. There is no JVD. There is no lower extremity edema. PULMONARY: Lungs are clear. No wheezes, rales, or rhonchi. ABDOMEN: Soft, nontender, nondistended. No guarding or rebound tenderness. Normoactive bowel sounds. EXTRE MITIES: No clubbing or cyanosis. NEURO: Cranial nerves 2-12 grossly intact. No focal motor or se nsory deficits. SKIN: Clear. No rashes. DIAGNOSTICS: WBC is 5.8, hemoglobin 14.9, hematocrit 43.3, platelets 228. Sodium 140, potassium 4. 3, chloride 108, BUN 36, creatinine 1.4, glucose 97, calcium 9.1. BNP 2750. Chest x-ray, which I visualized and personally interpreted, showed a mild perihilar bronchitis with no focal infiltrates, heart is normal size. EKG, which I visualized and personally interpreted, shows atrial fibrillation, rate 87 beats per min santi, no acute ischemic changes. ASSESSMENT AND PLAN: This is a 71-year-old male recently discharged from [facility] with: 1. Insomnia in the setting of paroxysmal nocturnal dyspnea. Differential diagnosis includes acute diastolic heart failure versus upper airway congestion due to phlegm versus obstructive sleep apnea which he does have a history of but does not use a CPAP. a. Plan is patient did receive 20 mg of IV Lasix in the emergency department. I discussed treatmen t options with him which included discharge home with a trial of mucolytic and nasal saline with fur ther outpatient followup versus hospitalization and further observation. The patient did not feel c omfortable going home. For now, we will see if the Lasix improves his symptoms. We will order an e chocardiogram and compare this to an echo done last year, at which time, his ejection fraction was n ormal. 2. History of chronic kidney disease with elevated creatinine. a. Plan is avoid nephrotoxins and continue to monitor. 3. Recent hospitalization for pyelonephritis, which appears to be responding to treatment. a. Plan is continue levofloxacin and follow up with Urology regarding hematuria. 4. History of atrial fibrillation. a. Continue home dose of metoprolol as well as Eliquis. /[id number]/MODL
[2016-10-22] MEDS: guaiFENesin 600 MG TAB.ER PO SCH ×2 (02:28→07:46)
[2016-10-22 07:45] VITALS: PULSE 98; RESP 16; TEMP 97.7; O2SAT 92
[2016-10-22] MEDS ORDERED: FUROSEMIDE 20 MG/2 ML VIAL IVP SCH (09:00)
[2016-10-22] MEDS ORDERED: APIXABAN 5 MG TAB PO SCH (09:00)
[2016-10-22] MEDS ORDERED: METOPROLOL TARTRATE 25 MG TAB PO SCH (09:00)
[2016-10-22] MEDS ORDERED: ALBUTEROL 60 PUFFS/8 GM MDI IH SCH (09:00)
[2016-10-22 09:59] LABS: ANION GAP 12 mEq/L (8-16); CALCIUM 9.1 mg/dL (8.5-10.4); CARBON DIOXIDE 24 mEq/l (22-31); CHLORIDE 105 mEq/L (97-110); CREATININE 1.4 mg/dL (0.7-1.3); GLOMERULAR FILTRATION RATE 50; GLUCOSE 115 mg/dL (70-100); MAGNESIUM 2.1 mg/dL (1.6-2.3); POTASSIUM 4.5 mEq/L (3.5-5.2); SODIUM 141 mEq/L (134-144)
[2016-10-22 10:38] VITALS: BP 94/63
--- NOTE | 2016-10-22 12:25 | ECHO ---
[id number] + + [address] : : [place] [address] : : [phone] + Adult Echocardiographic Report + + :Name: GERONIMO ONEAL RStudy Date: 10/22/2016 10:30 AM : : Hospital Admission Number: [id number] : :: 1945 Gender: Male Height: 70 in : :Age: 71 yrs Race: WH,White Weight: 188 lb : :Reason For Study: Eval LV Fx : : BSA: 2.0 meters2: :History: Atrial Fibrillation, PND : + + MMode/2D Measurements \T\ Calculations IVSd: 0.89 cm LVIDd: 3.4 cm FS: 38.2 % Ao root diam: 3.5 cm LVPWd: 1.1 cm LVIDs: 2.1 cm EDV(Teich): 49.0 ml ACS: 2.2 cm ESV(Teich): 14.9 ml EF(Teich): 69.5 % Normal Measurement Values: + + :LVIDd (3.5-5.7cm) IVSd (0.6-1.1cm) LVPWd (0.6-1.1cm) Aortic Root (2.0-3.7cm)Left Atrium (1.5-4.0cm): :LV Vol(d) (76-115ml) LV Vol(s) (29-48ml) Ejec Fraction (50-65%)PV Trey (0.6- 1.2m/s) TV Trey (0.4-1.0m/s) : :MV E Trey (0.8-1.0m/s)MV A Trey (0.3-1.0m/s)LVOT Trey (0.7-1.2m/s) Asc Ao Trey ( 0.9-1.8m/s) : + + Doppler Measurements \T\ Calculations MV E max trey: Ao V2 max: LV V1 max: PA V2 max: 56.8 cm/sec 74.7 cm/sec 66.1 cm/sec 76.0 cm/sec MV A max trey: Ao max P.2 mmHg LV V1 max PG: PA max P.0 cm/sec 1.7 mmHg 2.3 mmHg MV E/A: 1.5 PI end-d trey: TR max trey: 86.9 cm/sec 221.3 cm/sec TR max P.6 mmHg RAP systole: 5.0 mmHg RVSP(TR): 24.6 mmHg Left Ventricle The left ventricle is normal in size. There is normal left ventricular wall thickness. The left ventricular ejection fraction is normal. The rhythm is atrial fibrillation. The left ventricular wall motion is normal. Right Ventricle The right ventricle is normal in size and function. Atria The left atrium is mildly dilated. Right atrial size is normal. Mitral Valve The mitral valve is normal. There is no mitral valve stenosis. There is trace to mild mitral regurgitation. Tricuspid Valve There is mild tricuspid regurgitation. Right ventricular systolic pressure is normal. Aortic Valve The aortic valve is normal in structure and function. There is no aortic stenosis. Trace aortic regurgitation. Pulmonic Valve The pulmonic valve is normal in structure and function. There is no pulmonic valvular regurgitation. Great Vessels Mildly dilated ascending aorta. Ascending aorta is 4.4 cm. Pericardium/Pleural There is no pericardial effusion. Conclusion A complete two-dimensional transthoracic echocardiogram was performed (2D, M-mode, Doppler and color flow Doppler). The rhythm is atrial fibrillation. The left ventricular ejection fraction is normal. The left ventricular wall motion is normal. The left atrium is mildly dilated. The mitral valve is normal. There is trace to mild mitral regurgitation. There is mild tricuspid regurgitation. Right ventricular systolic pressure is normal. The aortic valve is normal in structure and function. Trace aortic regurgitation. There is no pericardial effusion. Mildly dilated ascending aorta. Ascending aorta is 4.4 cm Most recent prior study was a ANT dated 11/18/2015; LVEF remains normal. MR was slightly worse on prior study. Ascending aorta was not well visualized. It is now mildly dilated. Final Reading Physician: Dr Kathryn Haywood electronically signed on 10/22/2016 12:24 PM Ordering Physician: Rob Sanchez Performed By: Morteza Olmedo, CS
--- NOTE | 2016-10-22 14:08 | PDDCSUM ---
Discharge Summary Discharge Summary: DISCHARGE SUMMARY FOLLOW-UP ITEMS: Outpatient sleep study results, initiate treatment if indicated DATE OF ADMISSION: 10/21/2016 DATE OF DISCHARGE: 10/22/2016 DISCHARGE DIAGNOSES: 1. URI 2. Suspected VICENTE 3. Acute kidney injury on chronic kidney disease stage 3 CONSULTATIONS: None PROCEDURES / IMAGING: Chest x-ray demonstrating some central peribronchial thickening, no evidence of effusions CHIEF COMPLAINT: Upper airway congestion and inability to sleep SUBJECTIVE: Patient reports that his sleep last night was somewhat better than on the nights prior, he is not experiencing any shortness of breath while awake PHYSICAL EXAM ON DISCHARGE: Systolic blood pressure is 110, heart rate 80, afebrile overnight, satting well on room air while awake, lungs are clear to auscultation bilaterally without any expiratory wheezes or bronchial breath sounds, no lower extremity edema LABS ON DISCHARGE: Creatinine 1.4, BNP 2800, TSH 3.4 HOSPITAL COURSE BY PROBLEM: 1. URI. The patient's sensation of mucus in his throat and audible upper airway sounds while attempting to sleep is most likely secondary to persistent URI with sinus congestion and postnasal drainage not being effectively cleared when the patient is attempting to sleep. Is also most likely exacerbated by his untreated underlying VICENTE. In addition to having his VICENTE treated, I have recommended that the patient initiate mucolytic therapy with Mucinex, nasal decongestant with Flonase and cetirizine. At the present time, he does not appear to have any evidence of reactive airways and no additional treatment outside of his as needed albuterol inhaler and guaifenesin with codeine is indicated for his cough. His cough will most likely improve after his URI is affectively treated as he will have less postnasal drip. In the interim, I have recommended that the patient utilize a neck pillow to keep his neck as upright as possible which will assist in more comfortable drainage while he was attempting to sleep. I recommended a trial these interventions for the next several nights and then report to his primary care provider as well as outpatient pulmonology. 2. Suspected VICENTE. The patient reports that he has had 2 sleep studies and he has yet to follow up. I recommended that he follow up with outpatient pulmonology who has conducted his most recent study and act on any recommendations they may have for CPAP. His BNP level is most likely elevated secondary to his underlying VICENTE. That being said, his echocardiogram does not demonstrate a significant Andres elevated RVSP or any right ventricular dysfunction. He does not currently clinically have any evidence of congestive heart failure. 3. Acute kidney injury on chronic kidney disease. Evidenced by serum creatinine of 1.4, baseline is closer 1.1-1.2, most likely secondary to hypovolemia in the setting of recent fluid restriction as well as Lasix therapy received while he was being evaluated for congestive heart failure. I recommended that the patient maintain good oral hydration and he should be able to do so. He should have his laboratory values recheck by his primary care provider upon follow-up so that he is able to be triaged to an epic cadence analyst once has been established that he does have an element of chronic kidney disease. DISCHARGE MEDICATIONS: Please see official discharge medication reconciliation sheet in chart , Flonase 2 sprays daily, cetirizine 10 mg at bedtime, Mucinex 1200 mg twice daily. DISCHARGE INSTRUCTIONS: Patient should follow up with his outpatient conference producer and initiate VICENTE treatment modalities, he should then follow up with his primary care provider and have outpatient creatinine BUN and lytes performed. TIME SPENT: Greater than 30 minutes were spent on direct patient care, as well as discharge planning and preparation.
[2016-10-22] MEDS ORDERED: guaiFENesin/CODEINE PHOS 10 ML UDCUP PO SCH (21:00)
== END 2016-10-22 15:20 | disposition home or self-care (01) ==
LOC: F1N 10-22 01:32
PROVIDERS: ADMIT Family Medicine; ATTEND Internal Medicine
PROC: B246ZZZ Ultrasonography of Right and Left Heart (ICD-10-PCS; principal; 2016-10-22)
DX: J06.9 Acute upper respiratory infection, unspecified (principal); G47.33 Obstructive sleep apnea (adult) (pediatric); R06.00 Dyspnea, unspecified; N17.9 Acute kidney failure, unspecified; N18.3 Chronic kidney disease, stage 3 (moderate); E86.1 Hypovolemia; Z87.448 Personal history of other diseases of urinary system; I48.91 Unspecified atrial fibrillation; S32.030A Wedge compression fracture of third lumbar vertebra, initial encounter for closed fracture; S32.040A Wedge compression fracture of fourth lumbar vertebra, initial encounter for closed fracture; Z85.46 Personal history of malignant neoplasm of prostate; Z85.51 Personal history of malignant neoplasm of bladder; Z85.72 Personal history of non-Hodgkin lymphomas; Z79.01 Long term (current) use of anticoagulants
CPT/HCPCS: 71020; 93005; 93306; G0378

== ENCOUNTER → 2018-02-01 | Outpatient (CLI) | payer OTHER, MEDICARE | LOC: FIMAGING 08:20 | PROVIDERS: ATTEND Urology | DX: N20.0 Calculus of kidney (principal); Z85.51 Personal history of malignant neoplasm of bladder; Z85.46 Personal history of malignant neoplasm of prostate ==

== ENCOUNTER → 2018-02-04 | Outpatient (CLI) | payer OTHER, MEDICARE | LOC: BHFA 14:15 | PROVIDERS: ATTEND Internal Medicine Interventional Cardiology | DX: I48.91 Unspecified atrial fibrillation (principal); I28.8 Other diseases of pulmonary vessels; R06.09 Other forms of dyspnea ==

== ENCOUNTER → 2018-02-11 | Outpatient (CLI) | payer OTHER, MEDICARE | LOC: BHFA 13:00 | PROVIDERS: ATTEND Internal Medicine Interventional Cardiology | DX: I48.91 Unspecified atrial fibrillation (principal) ==